=== PATIENT | male | born 1965 | race Caucasian/White ===

== ENCOUNTER → 2020-02-07 | Outpatient (CLI) | payer OTHER ==
[~2020-02-07] MED LIST: BACITRACIN 50,000 UNIT ONE; BUPIVACAINE/PF 0.5% ONE; EPINEPHRINE 1 MG/ML, 1ML ONE; IBUP200T49 PO; MULT-658 PO; TRAZ50TA66 PO; VITA1CAP PO; [UNRECOGNIZED DRUG - REMARK] PO; [UNRECOGNIZED DRUG - REMARK] PO; [UNRECOGNIZED DRUG - REMARK] PO; gabapentin PO
[2020-02-07 16:37] LABS: MICROSCOPIC INDICATED
[2020-02-07 17:04] LABS: BASOPHILS % (AUTO) 1 % (0-1); EOSINOPHILS % (AUTO) 3 % (1-7); LYMPHOCYTES % (AUTO) 35 % (22-44); MEAN CORPUSCULAR HEMOGLOBIN 33.6 pg (27.5-34.5); MEAN CORPUSCULAR HGB CONC 34.6 g/dL (33.2-36.2); MEAN PLATELET VOLUME 7.9 fL (7.4-10.4); MONOCYTES % (AUTO) 7 % (2-9); NEUTROPHILS % (AUTO) 54 % (42-75); PLATELET COUNT 248 x10^3/uL (130-400); RED BLOOD COUNT 4.82 x10^6/uL (4.38-5.82); RED CELL DISTRIBUTION WIDTH 12.5 % (9.4-14.8)
[2020-02-07 17:05] LABS: MD NO
[2020-02-07 17:11] LABS: ALANINE AMINOTRANSFERASE 49 U/L (12-78); ALBUMIN 4.3 g/dL (3.4-5.0); ANION GAP 4 mmol/L (5-15); CHLORIDE 103 mmol/L (98-107); CREATININE 0.86 mg/dL (0.7-1.3)
[2020-02-07 17:13] LABS: ALKALINE PHOSPHATASE 79 U/L (45-117); BILIRUBIN,TOTAL 0.5 mg/dL (0.2-1.0); INTERNATIONAL NORMALIZED RATIO 0.96 (0.93-1.1); PROTHROMBIN TIME 10.2 Seconds (9.6-11.5); TOTAL PROTEIN 7.9 g/dL (6.4-8.2)
[2020-02-07 17:27] LABS: CALCIUM 9.6 mg/dL (8.5-10.1)
== END | disposition home or self-care (01) ==
LOC: STAR 15:21
PROVIDERS: ATTEND Neurological Surgery
DX: Z01.812 Encounter for preprocedural laboratory examination (principal); Z20.828 Contact with and (suspected) exposure to other viral communicable diseases; Z01.818 Encounter for other preprocedural examination; Z01.811 Encounter for preprocedural respiratory examination; Z01.810 Encounter for preprocedural cardiovascular examination; R94.31 Abnormal electrocardiogram [ECG] [EKG]; R82.90 Unspecified abnormal findings in urine; R79.1 Abnormal coagulation profile; M48.061 Spinal stenosis, lumbar region without neurogenic claudication; M51.36 Other intervertebral disc degeneration, lumbar region; J43.9 Emphysema, unspecified
CPT/HCPCS: 71046; 80053; 81001; 85025; 85610; 85730; 87086; 87635; 93005

== ENCOUNTER 2020-02-12 09:32 | Inpatient (IN) | payer OTHER ==
[~2020-02-12] VITALS: Ht 188 cm; Wt 94.0 kg
[~2020-02-12 09:32] MED LIST changes: -BACITRACIN 50,000 UNIT ONE; -BUPIVACAINE/PF 0.5% ONE; -EPINEPHRINE 1 MG/ML, 1ML ONE
[2020-02-12] MEDS ORDERED: CHLORHEXIDINE 15 ML UDC MM STA (12:29)
[2020-02-12] MEDS ORDERED: LACTATED RINGERS 1,000 ML IV SCH (12:30)
[2020-02-12] MEDS ORDERED: MIDAZOLAM 1 MG/ML, 2ML ONE (12:50)
[2020-02-12] MEDS ORDERED: FENTANYL PF 250 MCG/5ML ONE (12:50)
[2020-02-12] MEDS ORDERED: PROPOFOL 10 MG/ML, 20ML ONE (12:55)
[2020-02-12] MEDS ORDERED: CEFAZOLIN 1,000 MG ONE (12:55)
[2020-02-12] MEDS ORDERED: NEOSTIGMINE 1 MG/ML, 10ML ONE (12:55)
[2020-02-12] MEDS ORDERED: DEXAMETHASONE 4 MG/ML, 1ML ONE (12:55)
[2020-02-12] MEDS ORDERED: SUCCINYLCHOLINE 20 MG/ML, 10ML ONE (12:55)
[2020-02-12] MEDS ORDERED: ROCURONIUM 10MG/ML,5ML ONE (12:55)
[2020-02-12] MEDS ORDERED: GLYCOPYRROLATE 0.2MG/1ML, 5ML ONE (12:55)
[2020-02-12] MEDS ORDERED: ONDANSETRON 2MG/ML, 2ML ONE (12:55)
[2020-02-12] MEDS ORDERED: METHOCARBAMOL 1,000 MG in DEXTROSE 5% 100 ML IV PRN (14:00)
[2020-02-12] MEDS ORDERED: ONDANSETRON 2MG/ML, 2ML IVPush PRN ×2 (14:00→15:00)
[2020-02-12] MEDS ORDERED: ACETAMINOPHEN 325 MG TABLET PO PRN ×2 (14:00→15:00)
[2020-02-12] MEDS ORDERED: PROMETHAZINE 25 MG SUPP PR PRN (14:00)
[2020-02-12] MEDS ORDERED: hydrALAzine 20 MG/ML, 1ML IV PRN (14:00)
[2020-02-12] MEDS ORDERED: ALBUTEROL SULFATE 2.5 MG/3 ML NPPB PRN (14:00)
[2020-02-12] MEDS ORDERED: PROMETHAZINE 12.5 MG SUPP PR PRN (14:00)
[2020-02-12] MEDS ORDERED: OXYcodone 5 MG/5 ML ORAL.SOL UDC PO PRN (14:00)
[2020-02-12] MEDS ORDERED: LORazepam 2 MG/ML, 1ML IVPush PRN (14:00)
[2020-02-12] MEDS ORDERED: LABETALOL 5MG/ML, 20ML IV PRN (14:00)
[2020-02-12] MEDS ORDERED: BACITRACIN 50,000 UNIT IM ONE (14:02)
[2020-02-12] MEDS ORDERED: BUPIVACAINE/PF-EPI 0.5% 1:200K INFIL ONE (14:02)
[2020-02-12] MEDS ORDERED: FENTANYL PF 100 MCG/2ML ONE (14:55)
[2020-02-12] MEDS ORDERED: HYDROmorphone 1 MG/ML, 1ML INJ ONE ×2 (14:55→15:50)
[2020-02-12] MEDS ORDERED: OXYcodone 5 MG/5 ML ORAL.SOL UDC ONE (14:55)
[2020-02-12] MEDS ORDERED: PROMETHAZINE 25 MG/ML, 1ML IM PRN (15:00)
[2020-02-12] MEDS ORDERED: HYDROcodone/APAP 5/325 TABLET PO PRN (15:00)
[2020-02-12] MEDS ORDERED: DIPHENHYDRAMINE 50 MG/ML, 1ML IVPush PRN (15:00)
[2020-02-12] MEDS ORDERED: SENNA/DOCUSATE TABLET PO PRN (15:00)
[2020-02-12] MEDS ORDERED: BISACODYL 10 MG SUPP PR PRN (15:00)
[2020-02-12] MEDS ORDERED: METHOCARBAMOL 1,000 MG in DEXTROSE 5% 100 ML IV ONE ×2 (15:00→16:00)
[2020-02-12] MEDS ORDERED: PHARMACY MAY ADJ FOR RENAL FX MC PRN (15:00)
[2020-02-12] MEDS ORDERED: MAGNESIUM HYDROXIDE 8%, 30ML UDC PO PRN (15:00)
[2020-02-12] MEDS: FENTANYL PF 100 MCG/2ML IV PRN ×2 (15:06→15:28)
[2020-02-12] MEDS: HYDROmorphone 1 MG/ML, 1ML INJ IVPush PRN ×5 (15:11→23:00)
[2020-02-12] MEDS: GABAPENTIN 300 MG CAPSULE PO SCH ×2 (16:00→20:41)
[2020-02-12] MEDS: HYDROcodone/APAP 10/325 MG TABLET PO PRN ×2 (16:56→20:59)
[2020-02-12] MEDS: D5%-0.9% NACL+KCL 20MEQ 1,000 ML IV SCH (18:44)
[2020-02-12 19:30] VITALS: BP 117/75
[2020-02-12] MEDS: SODIUM CHLORIDE FLUSH 10ML SYR IVF SCH (20:40)
[2020-02-12] MEDS: CEFAZOLIN PMX 1GM/50ML 50 ML IVPB SCH (20:40)
[2020-02-12] MEDS: TRAZODONE 50MG TABLET PO SCH (23:44)
[2020-02-13 00:32] VITALS: BP 107/71
[2020-02-13 04:20] VITALS: BP 92/64
[2020-02-13] MEDS: D5%-0.9% NACL+KCL 20MEQ 1,000 ML IV SCH ×3 (04:21→23:51)
[2020-02-13] MEDS: CEFAZOLIN PMX 1GM/50ML 50 ML IVPB SCH ×2 (04:21→22:38)
[2020-02-13] MEDS: METHOCARBAMOL 750 MG TABLET PO PRN ×2 (04:21→18:23)
[2020-02-13] MEDS: HYDROcodone/APAP 10/325 MG TABLET PO PRN ×4 (04:22→22:39)
[2020-02-13] MEDS ORDERED: ENOXAPARIN 40 MG/0.4 ML SQ SCH (06:00)
[2020-02-13 06:02] LABS: BASOPHILS % (AUTO) 0 % (0-1); EOSINOPHILS % (AUTO) 0 % (1-7); LYMPHOCYTES % (AUTO) 10 % (22-44); MEAN CORPUSCULAR HGB CONC 33.9 g/dL (33.2-36.2); MONOCYTES % (AUTO) 6 % (2-9); NEUTROPHILS % (AUTO) 84 % (42-75); PLATELET COUNT 208 x10^3/uL (130-400); RED BLOOD COUNT 4.46 x10^6/uL (4.38-5.82); RED CELL DISTRIBUTION WIDTH 12.7 % (9.4-14.8)
[2020-02-13 06:14] LABS: CALCIUM 8.6 mg/dL (8.5-10.1); CHLORIDE 106 mmol/L (98-107)
[2020-02-13 06:17] LABS: ALBUMIN 3.5 g/dL (3.4-5.0); ANION GAP 5 mmol/L (5-15); CREATININE 0.78 mg/dL (0.7-1.3)
[2020-02-13] MEDS ORDERED: BACITRACIN 50,000 UNIT ONE (06:19)
[2020-02-13] MEDS ORDERED: BUPIVACAINE/PF 0.5% ONE (06:19)
[2020-02-13] MEDS ORDERED: EPINEPHRINE 1 MG/ML, 1ML ONE (06:19)
[2020-02-13] MEDS ORDERED: VANCOMYCIN 1,000 MG ONE (06:19)
[2020-02-13 06:27] LABS: MD SCAN
[2020-02-13] MEDS: GABAPENTIN 300 MG CAPSULE PO SCH ×4 (06:53→22:37)
[2020-02-13] MEDS: SODIUM CHLORIDE FLUSH 10ML SYR IVF SCH ×3 (07:29→22:38)
[2020-02-13 08:34] VITALS: BP 120/71
[2020-02-13] MEDS ORDERED: TRAZODONE 50MG TABLET PO SCH (09:00)
[2020-02-13] MEDS ORDERED: FENTANYL PF 250 MCG/5ML ONE (11:12)
[2020-02-13] MEDS ORDERED: MIDAZOLAM 1 MG/ML, 2ML ONE (11:12)
[2020-02-13] MEDS ORDERED: CHLORHEXIDINE 15 ML UDC MM STA (11:33)
[2020-02-13] MEDS ORDERED: PHENYLEPHRINE 10 MG/ML ONE (12:34)
[2020-02-13] MEDS ORDERED: EPHEDRINE 50 MG/ML, 1ML ONE (12:34)
[2020-02-13] MEDS ORDERED: BACITRACIN 50,000 UNIT IRRIG ONE (13:20)
[2020-02-13] MEDS ORDERED: BUPIVACAINE/PF 0.5% INFIL ONE (13:20)
[2020-02-13] MEDS ORDERED: PROMETHAZINE 25 MG/ML, 1ML IVPush PRN (13:30)
[2020-02-13] MEDS ORDERED: OXYcodone 5 MG/5 ML ORAL.SOL UDC PO PRN (13:30)
[2020-02-13] MEDS ORDERED: hydrALAzine 20 MG/ML, 1ML IV PRN (13:30)
[2020-02-13] MEDS ORDERED: ACETAMINOPHEN 325 MG TABLET PO PRN (13:30)
[2020-02-13] MEDS ORDERED: METHOCARBAMOL 1,000 MG in DEXTROSE 5% 100 ML IV PRN (13:30)
[2020-02-13] MEDS ORDERED: HYDROmorphone 1 MG/ML, 1ML INJ IVPush PRN (13:30)
[2020-02-13] MEDS ORDERED: LABETALOL 5MG/ML, 20ML IV PRN (13:30)
[2020-02-13] MEDS ORDERED: FENTANYL PF 100 MCG/2ML IV PRN (13:30)
[2020-02-13] MEDS ORDERED: LORazepam 2 MG/ML, 1ML IVPush PRN (13:30)
[2020-02-13] MEDS ORDERED: ALBUTEROL SULFATE 2.5 MG/3 ML NPPB PRN (13:30)
[2020-02-13] MEDS ORDERED: MEPERIDINE/PF 25MG/0.5ML IVPush PRN (13:30)
[2020-02-13] MEDS ORDERED: GLYCOPYRROLATE 0.2MG/1ML, 5ML ONE (13:57)
[2020-02-13] MEDS ORDERED: PROPOFOL 10 MG/ML, 20ML ONE (13:57)
[2020-02-13] MEDS ORDERED: ROCURONIUM 10MG/ML,5ML ONE (13:57)
[2020-02-13] MEDS ORDERED: NEOSTIGMINE 1 MG/ML, 10ML ONE (13:57)
[2020-02-13] MEDS ORDERED: DEXAMETHASONE 4 MG/ML, 1ML ONE (13:57)
[2020-02-13] MEDS ORDERED: CEFAZOLIN 1,000 MG ONE (13:57)
[2020-02-13] MEDS ORDERED: ONDANSETRON 2MG/ML, 2ML ONE (13:57)
[2020-02-13] MEDS ORDERED: LIDOCAINE-MPF 2%, 2ML ONE ×2 (13:57)
[2020-02-13] MEDS ORDERED: MEPERIDINE/PF 25MG/ML,1ML ONE (14:06)
[2020-02-13] MEDS ORDERED: FENTANYL PF 100 MCG/2ML ONE (14:06)
[2020-02-13] MEDS ORDERED: HYDROmorphone 1 MG/ML, 1ML INJ ONE (14:06)
[2020-02-13] MEDS ORDERED: LORazepam 2 MG/ML, 1ML ONE (14:07)
[2020-02-13] MEDS ORDERED: OXYcodone 5 MG/5 ML ORAL.SOL UDC ONE (14:07)
[2020-02-13] MEDS ORDERED: MAGNESIUM HYDROXIDE 8%, 30ML UDC PO PRN (14:30)
[2020-02-13] MEDS ORDERED: ONDANSETRON 2MG/ML, 2ML IVPush PRN (14:30)
[2020-02-13] MEDS ORDERED: DIPHENHYDRAMINE 50 MG CAPSULE PO PRN (14:30)
[2020-02-13] MEDS ORDERED: LABETALOL 5MG/ML, 20ML IVPush PRN (14:30)
[2020-02-13] MEDS ORDERED: HYDROcodone/APAP 5/325 TABLET PO PRN (14:30)
[2020-02-13] MEDS ORDERED: morphine SULFATE 10 MG/ML, 1ML IVPush PRN (14:30)
[2020-02-13] MEDS ORDERED: BISACODYL 10 MG SUPP PR PRN (14:30)
[2020-02-13] MEDS ORDERED: PHARMACY MAY ADJ FOR RENAL FX MC PRN ×2 (14:30)
[2020-02-13] MEDS ORDERED: METHOCARBAMOL 750 MG TABLET PO PRN (14:30)
[2020-02-13] MEDS ORDERED: SENNA/DOCUSATE TABLET PO PRN (14:30)
[2020-02-13] MEDS ORDERED: DIPHENHYDRAMINE 50 MG/ML, 1ML IVPush PRN (14:30)
[2020-02-13 15:45] VITALS: BP 124/78
[2020-02-13] MEDS: NS + 20MEQ KCL 1,000 ML IV SCH (16:20)
[2020-02-13 20:16] VITALS: BP 123/78
[2020-02-13] MEDS: TRAZODONE 50MG TABLET PO SCH (22:37)
[2020-02-14] MEDS: METOCLOPRAMIDE 5 MG/ML, 2ML IVPush SCH ×4 (01:20→20:18)
[2020-02-14] MEDS: NS + 20MEQ KCL 1,000 ML IV SCH ×5 (01:20→22:37)
[2020-02-14 01:44] VITALS: BP 117/75
[2020-02-14 05:57] LABS: BASOPHILS % (AUTO) 0 % (0-1); EOSINOPHILS % (AUTO) 0 % (1-7); LYMPHOCYTES % (AUTO) 14 % (22-44); MEAN CORPUSCULAR HEMOGLOBIN 33.4 pg (27.5-34.5); MEAN CORPUSCULAR HGB CONC 34.4 g/dL (33.2-36.2); MEAN PLATELET VOLUME 7.8 fL (7.4-10.4); MONOCYTES % (AUTO) 7 % (2-9); NEUTROPHILS % (AUTO) 78 % (42-75); PLATELET COUNT 213 x10^3/uL (130-400); RED BLOOD COUNT 4.24 x10^6/uL (4.38-5.82); RED CELL DISTRIBUTION WIDTH 13.1 % (9.4-14.8)
[2020-02-14 06:17] LABS: MD NO
[2020-02-14] MEDS: CEFAZOLIN PMX 1GM/50ML 50 ML IVPB SCH ×2 (06:25→22:33)
[2020-02-14] MEDS: METHOCARBAMOL 750 MG TABLET PO PRN (06:26)
[2020-02-14] MEDS: GABAPENTIN 300 MG CAPSULE PO SCH ×4 (06:26→20:30)
[2020-02-14] MEDS: HYDROcodone/APAP 10/325 MG TABLET PO PRN ×3 (06:28→22:32)
[2020-02-14 07:01] LABS: ALBUMIN 3.2 g/dL (3.4-5.0); ANION GAP 5 mmol/L (5-15); CALCIUM 8.4 mg/dL (8.5-10.1); CHLORIDE 107 mmol/L (98-107); CREATININE 0.76 mg/dL (0.7-1.3)
[2020-02-14] MEDS: HYDROmorphone 1 MG/ML, 1ML INJ IVPush PRN (07:47)
[2020-02-14] MEDS: SODIUM CHLORIDE FLUSH 10ML SYR IVF SCH ×5 (07:47→21:00)
[2020-02-14 08:07] VITALS: BP 120/82
[2020-02-14] MEDS ORDERED: MIDAZOLAM 1 MG/ML, 2ML ONE (13:24)
[2020-02-14] MEDS ORDERED: FENTANYL PF 250 MCG/5ML ONE (13:25)
[2020-02-14] MEDS ORDERED: METOPROLOL 1 MG/ML, 5ML ONE (13:44)
[2020-02-14] MEDS ORDERED: BUPIVACAINE/PF-EPI 0.5% 1:200K INFIL ONE (15:08)
[2020-02-14] MEDS ORDERED: DIAZEPAM 5 MG/ML, 2ML IVPush PRN (15:30)
[2020-02-14] MEDS ORDERED: MEPERIDINE/PF 25MG/0.5ML IVPush PRN (15:30)
[2020-02-14] MEDS ORDERED: KETOROLAC 30 MG/1 ML IV PRN (15:30)
[2020-02-14] MEDS ORDERED: hydrALAzine 20 MG/ML, 1ML IV PRN (15:30)
[2020-02-14] MEDS ORDERED: OXYcodone 5 MG/5 ML ORAL.SOL UDC PO PRN (15:30)
[2020-02-14] MEDS ORDERED: LABETALOL 5MG/ML, 20ML IV PRN (15:30)
[2020-02-14] MEDS ORDERED: PROMETHAZINE 25 MG/ML, 1ML IV PRN (15:30)
[2020-02-14] MEDS ORDERED: ACETAMINOPHEN 325 MG TABLET PO PRN (15:30)
[2020-02-14] MEDS ORDERED: ALBUTEROL SULFATE 2.5 MG/3 ML NPPB PRN (15:30)
[2020-02-14] MEDS ORDERED: NEOSTIGMINE 1 MG/ML, 10ML ONE (16:11)
[2020-02-14] MEDS ORDERED: SUCCINYLCHOLINE 20 MG/ML, 10ML ONE (16:11)
[2020-02-14] MEDS ORDERED: ONDANSETRON 2MG/ML, 2ML ONE (16:11)
[2020-02-14] MEDS ORDERED: GLYCOPYRROLATE 0.2MG/1ML, 5ML ONE (16:11)
[2020-02-14] MEDS ORDERED: PROPOFOL 10 MG/ML, 20ML ONE (16:11)
[2020-02-14] MEDS ORDERED: ROCURONIUM 10MG/ML,5ML ONE (16:11)
[2020-02-14] MEDS ORDERED: CEFAZOLIN 1,000 MG ONE (16:11)
[2020-02-14] MEDS ORDERED: DEXAMETHASONE 4 MG/ML, 1ML ONE (16:11)
[2020-02-14] MEDS ORDERED: FENTANYL PF 100 MCG/2ML ONE (16:50)
[2020-02-14] MEDS ORDERED: OXYcodone 5 MG/5 ML ORAL.SOL UDC ONE (16:50)
[2020-02-14] MEDS: FENTANYL PF 100 MCG/2ML IV PRN ×2 (16:52→17:03)
[2020-02-14] MEDS ORDERED: METHOCARBAMOL 1,000 MG in DEXTROSE 5% 100 ML IV ONE (17:00)
[2020-02-14] MEDS ORDERED: DIPHENHYDRAMINE 50 MG/ML, 1ML IM PRN (17:00)
[2020-02-14] MEDS ORDERED: LABETALOL 5MG/ML, 20ML IVPush PRN (17:00)
[2020-02-14] MEDS ORDERED: HYDROmorphone 1 MG/ML, 1ML INJ IVPush PRN (17:00)
[2020-02-14] MEDS ORDERED: DIPHENHYDRAMINE 50 MG CAPSULE PO PRN (17:00)
[2020-02-14] MEDS ORDERED: HYDROcodone/APAP 5/325 TABLET PO PRN (17:00)
[2020-02-14] MEDS ORDERED: SENNA/DOCUSATE TABLET PO PRN (17:00)
[2020-02-14] MEDS ORDERED: DIPHENHYDRAMINE 50 MG/ML, 1ML IVPush PRN (17:00)
[2020-02-14] MEDS ORDERED: ONDANSETRON 2MG/ML, 2ML IVPush PRN (17:00)
[2020-02-14] MEDS ORDERED: BISACODYL 10 MG SUPP PR PRN (17:00)
[2020-02-14] MEDS ORDERED: PHARMACY MAY ADJ FOR RENAL FX MC PRN (17:00)
[2020-02-14] MEDS ORDERED: HYDROmorphone 1 MG/ML, 1ML INJ ONE ×2 (17:09→17:40)
[2020-02-14] MEDS: HYDROmorphone 2 MG/ML, 1ML IVPush PRN ×4 (17:10→17:48)
[2020-02-14 21:13] VITALS: BP 100/63
[2020-02-14] MEDS: TRAZODONE 50MG TABLET PO SCH (22:31)
[2020-02-15] VITALS: BP 156/88
[2020-02-15] MEDS: HYDROmorphone 1 MG/ML, 1ML INJ IVPush PRN (01:19)
[2020-02-15] MEDS: METOCLOPRAMIDE 5 MG/ML, 2ML IVPush SCH ×4 (01:29→20:00)
[2020-02-15] MEDS: METHOCARBAMOL 750 MG TABLET PO PRN (03:30)
[2020-02-15] MEDS: HYDROcodone/APAP 10/325 MG TABLET PO PRN ×5 (03:31→20:20)
[2020-02-15 03:34] VITALS: BP 114/68
[2020-02-15 05:15] LABS: BASOPHILS % (AUTO) 0 % (0-1); EOSINOPHILS % (AUTO) 0 % (1-7); LYMPHOCYTES % (AUTO) 16 % (22-44); MEAN CORPUSCULAR HEMOGLOBIN 33.7 pg (27.5-34.5); MEAN CORPUSCULAR HGB CONC 34.3 g/dL (33.2-36.2); MEAN PLATELET VOLUME 7.8 fL (7.4-10.4); MONOCYTES % (AUTO) 8 % (2-9); NEUTROPHILS % (AUTO) 75 % (42-75); PLATELET COUNT 187 x10^3/uL (130-400); RED BLOOD COUNT 4.02 x10^6/uL (4.38-5.82); RED CELL DISTRIBUTION WIDTH 12.8 % (9.4-14.8)
[2020-02-15 05:21] LABS: MD NO
[2020-02-15 05:29] LABS: ALBUMIN 3.1 g/dL (3.4-5.0); ANION GAP 4 mmol/L (5-15); CALCIUM 8.3 mg/dL (8.5-10.1); CHLORIDE 105 mmol/L (98-107); CREATININE 0.72 mg/dL (0.7-1.3)
[2020-02-15] MEDS: GABAPENTIN 300 MG CAPSULE PO SCH ×4 (05:37→20:20)
[2020-02-15] MEDS: ENOXAPARIN 40 MG/0.4 ML SQ SCH (05:38)
[2020-02-15 06:26] VITALS: BP 127/81
[2020-02-15] MEDS: CEFAZOLIN PMX 1GM/50ML 50 ML IVPB SCH (06:34)
[2020-02-15] MEDS ORDERED: PINK LADY ENEMA 490 ML BOTTLE PR PRN (08:00)
[2020-02-15] MEDS: POLYETHYLENE GLYCOL 17 GM PACKET PO SCH (08:08)
[2020-02-15] MEDS: SODIUM CHLORIDE FLUSH 10ML SYR IVF SCH ×2 (08:11→20:21)
[2020-02-15] MEDS: NS + 20MEQ KCL 1,000 ML IV SCH ×2 (13:00→23:00)
[2020-02-15 14:05] VITALS: BP 118/76
[2020-02-15] MEDS ORDERED: BUDE10.22 INH (17:28)
[2020-02-15] MEDS: BUTALB/APAP/CAFFEINE 50MG/325MG/40MG PO PRN (18:01)
[2020-02-15] MEDS: FLUTICASONE/VILANTEROL 100-25MCG/INH INH SCH (18:13)
[2020-02-15] MEDS ORDERED: CALCIUM CARBONATE 500 MG TAB.CHEW ONE (18:14)
[2020-02-15] MEDS: CALCIUM CARBONATE 500 MG TAB.CHEW PO PRN ×2 (18:16→20:20)
[2020-02-15 19:40] VITALS: BP 115/75
[2020-02-15] MEDS: TRAZODONE 50MG TABLET PO SCH (22:35)
[2020-02-16 00:10] VITALS: BP 102/69
[2020-02-16] MEDS: METOCLOPRAMIDE 5 MG/ML, 2ML IVPush SCH (01:36)
[2020-02-16] MEDS: BUTALB/APAP/CAFFEINE 50MG/325MG/40MG PO PRN ×2 (05:38→14:45)
[2020-02-16] MEDS: GABAPENTIN 300 MG CAPSULE PO SCH ×4 (05:39→20:08)
[2020-02-16] MEDS: ENOXAPARIN 40 MG/0.4 ML SQ SCH (05:39)
[2020-02-16 05:56] LABS: BASOPHILS % (AUTO) 0 % (0-1); EOSINOPHILS % (AUTO) 1 % (1-7); LYMPHOCYTES % (AUTO) 10 % (22-44); MEAN CORPUSCULAR HEMOGLOBIN 34.1 pg (27.5-34.5); MEAN CORPUSCULAR HGB CONC 35.5 g/dL (33.2-36.2); MEAN PLATELET VOLUME 7.6 fL (7.4-10.4); MONOCYTES % (AUTO) 9 % (2-9); NEUTROPHILS % (AUTO) 80 % (42-75); PLATELET COUNT 219 x10^3/uL (130-400); RED BLOOD COUNT 4.25 x10^6/uL (4.38-5.82); RED CELL DISTRIBUTION WIDTH 12.4 % (9.4-14.8)
[2020-02-16 06:01] LABS: MD NO
[2020-02-16 07:23] VITALS: BP 99/61
[2020-02-16] MEDS: SODIUM CHLORIDE FLUSH 10ML SYR IVF SCH ×2 (08:39→20:08)
[2020-02-16] MEDS: NS + 20MEQ KCL 1,000 ML IV SCH ×2 (08:39→19:00)
[2020-02-16] MEDS: POLYETHYLENE GLYCOL 17 GM PACKET PO SCH (08:39)
[2020-02-16] MEDS: FLUTICASONE/VILANTEROL 100-25MCG/INH INH SCH (08:39)
[2020-02-16] MEDS: HYDROcodone/APAP 10/325 MG TABLET PO PRN ×3 (10:35→20:08)
[2020-02-16 14:11] VITALS: BP 112/73
[2020-02-16] MEDS: TRAZODONE 50MG TABLET PO SCH (20:08)
[2020-02-16 21:31] VITALS: BP 122/76
[2020-02-17] MEDS: HYDROcodone/APAP 10/325 MG TABLET PO PRN ×3 (00:50→10:14)
[2020-02-17] MEDS: METHOCARBAMOL 750 MG TABLET PO SCH ×2 (00:51→08:58)
[2020-02-17 01:22] VITALS: BP 105/64
[2020-02-17] MEDS: ENOXAPARIN 40 MG/0.4 ML SQ SCH (05:50)
[2020-02-17] MEDS: GABAPENTIN 300 MG CAPSULE PO SCH ×2 (05:50→10:14)
[2020-02-17 07:16] LABS: BASOPHILS % (AUTO) 1 % (0-1); EOSINOPHILS % (AUTO) 5 % (1-7); LYMPHOCYTES % (AUTO) 20 % (22-44); MEAN CORPUSCULAR HEMOGLOBIN 34.4 pg (27.5-34.5); MEAN CORPUSCULAR HGB CONC 35.1 g/dL (33.2-36.2); MEAN PLATELET VOLUME 7.9 fL (7.4-10.4); MONOCYTES % (AUTO) 10 % (2-9); NEUTROPHILS % (AUTO) 64 % (42-75); PLATELET COUNT 226 x10^3/uL (130-400); RED BLOOD COUNT 3.93 x10^6/uL (4.38-5.82); RED CELL DISTRIBUTION WIDTH 12.5 % (9.4-14.8)
[2020-02-17 07:38] LABS: MD NO
[2020-02-17] MEDS ORDERED: HYDR-3245 PO (08:32)
[2020-02-17] MEDS ORDERED: METH750T2 PO (08:32)
[2020-02-17 08:55] VITALS: BP 119/65
[2020-02-17] MEDS: NS + 20MEQ KCL 1,000 ML IV SCH (08:59)
[2020-02-17] MEDS: FLUTICASONE/VILANTEROL 100-25MCG/INH INH SCH (08:59)
[2020-02-17] MEDS: SODIUM CHLORIDE FLUSH 10ML SYR IVF SCH (08:59)
[2020-02-17] MEDS: POLYETHYLENE GLYCOL 17 GM PACKET PO SCH (08:59)
== END 2020-02-17 12:58 | disposition home or self-care (01) | DRG 455 ==
LOC: ORIP 12:05 → 4NE 16:27 → DCLOUNGE 02-17 12:49
PROVIDERS: ADMIT Neurological Surgery; ATTEND Neurological Surgery
PROC: 0QB00ZZ Excision of Lumbar Vertebra, Open Approach (ICD-10-PCS; 2020-02-12)
PROC: 0QB10ZZ Excision of Sacrum, Open Approach (ICD-10-PCS; 2020-02-12)
PROC: 0SG30A0 Fusion of Lumbosacral Joint with Interbody Fusion Device, Anterior Approach, Anterior Column, Open Approach (ICD-10-PCS; principal; 2020-02-12 14:00)
PROC: 0SG00A0 Fusion of Lumbar Vertebral Joint with Interbody Fusion Device, Anterior Approach, Anterior Column, Open Approach (ICD-10-PCS; 2020-02-13)
PROC: 0SG30J1 Fusion of Lumbosacral Joint with Synthetic Substitute, Posterior Approach, Posterior Column, Open Approach (ICD-10-PCS; 2020-02-14)
DX: M43.16 Spondylolisthesis, lumbar region (principal); M47.26 Other spondylosis with radiculopathy, lumbar region; M48.061 Spinal stenosis, lumbar region without neurogenic claudication; M51.16 Intervertebral disc disorders with radiculopathy, lumbar region; M51.37 Other intervertebral disc degeneration, lumbosacral region; F17.210 Nicotine dependence, cigarettes, uncomplicated
CPT/HCPCS: 36415; 72100; 74018; J3490; S0020; 72131; 80048; 82040; 85025; 86850; 86900; C1713; C1729; G0378; J0171; J0690; J1100; J1170; J1650; J2250; J2405; J2704; J2710; J3010; J3370; J3480; C1763; C1889; J0330; J2370; J2765; J2800; J7120